=== PATIENT | male | born 1975 | race Caucasian/White ===

== ENCOUNTER → 2022-06-13 08:29 | Outpatient (CLI) | payer OTHER, SELFPAY ==
[2022-06-13 09:34] LABS: Influenza A - CEPHEID Flu A NEGATIVE (NEGATIVE); Influenza B - CEPHEID Flu B NEGATIVE (NEGATIVE); Respiratory Syncytial Virus Negative (Negative)
[2022-06-13 09:59] LABS: COVID-19 CEPHEID 4-PLEX PCR Negative (Negative)
== END ==
PROVIDERS: Visit Provider Physician Assistant Medical
DX: J02.9 Acute pharyngitis, unspecified (principal); R05.9 Cough, unspecified
CPT/HCPCS: 0241U; 87070; 87077; 87147

== ENCOUNTER 2025-01-22 07:51 | Emergency (ER) | payer OTHER, SELFPAY ==
[2025-01-22 08:16] VITALS: BP 146/88; PULSE 69; RESP 12; TEMP 36.6; O2SAT 99; BMI 34.9
--- NOTE | 2025-01-22 08:24 | DI.US.S_ITS ---
PROCEDURE: US SCROTUM INDICATIONS: RIGHT TESTICULAR PAIN TECHNIQUE: Real-time scanning was performed of the scrotum and testicles, with image documentation. Color and pulse Doppler interrogation was performed of both testicles. COMPARISON: [facility], CT, CT KIDNEY URETER BLADDER (KUB), 01/22/2025, 8:48. FINDINGS: Right: Testicle is normal in size at 4.6 x 3.3 x 2.5 cm, and homogenous in echotexture. Epididymis demonstrates multiple cysts. Mild hydrocele without varicoceles. Overlying scrotal skin is normal in thickness. Left: Testicle is normal in size at 4.6 x 3.7 x 2.7 cm, and homogeneous in echotexture. Epididymis is normal in overall size and morphology. Mild hydrocele without varicoceles. Overlying scrotal skin is normal in thickness. Doppler: Color and pulse Doppler demonstrate mild increased vascularity within the testicles biltaterally, as well as right epididymis. IMPRESSION: Increased vascularity within the right testicle and epididymis suggestive of epididymal orchitis. Questionable slightly increased vascularity within the left testicle possibly related to inflammation such as orchitis. Dictated by: Ramya Cohen M.D. on 01/22/2025 at 9:45 Approved by: Ramya Cohen M.D. on 01/22/2025 at 9:48
--- NOTE | 2025-01-22 08:42 | ED.MALEGU ---
HPI - Male Genitourinary General Chief complaint: Urogenital-Male Stated complaint: Pain in right testicle , right shoulder pain Time Seen by Provider: 01/22/25 08:31 Source: patient Mode of arrival: Ambulatory History of Present Illness HPI Narrative: Patient here for off and on right testicular pain right lower quadrant pain. No nausea or sweating. No hematuria no urinary urgency frequency. No penile discharge. Patient is monogamous with . No prior history of kidney stone or STD. Currently has no pain. However earlier this morning had pain. It is waxing and waning for the past 6 days. There has been days with no pain. Right shoulder pain is not new. This is chronic. Related Data Previous Rx's ?Medication ?Instructions ?Recorded amoxicillin 875 mg-potassium 1 tab PO BID #20 tabs 06/13/22 clavulanate 125 mg tablet doxycycline monohydrate 100 mg 100 mg PO BID #20 caps 01/22/25 capsule Allergies Allergy/AdvReac Type Severity Reaction Status Date / Time No Known Drug Allergies Allergy Verified 06/13/22 09:20 Review of Systems Review of Systems Narrative: GENERAL: Negative chills, fatigue, malaise, fever, sweats. HEENT: Negative sinus pain, ear pain, sore throat RESPIRATORY: Negative dyspnea, cough CARDIOVASCULAR: Negative chest pain, palpitations GASTROINTESTINAL: Negative vomiting, nausea, abdominal pain : Negative dysuria, frequency, hematuria, positive testicular pain MUSCULOSKELETAL: Negative muscle or bony pain SKIN: Negative rash, skin lesions NEUROLOGIC: Negative weakness, numbness ROS Unobtainable: All systems reviewed & are unremarkable except as noted in HPI and below Patient History Social History Smoking Status: Never smoker Smoking Status: Never smoker Exam Narrative Exam Narrative: GENERAL: in no distress, not toxic not dyspneic HEAD: Normocephalic. EYES: Pupils equal round ENT: Mucous membranes moist. NECK: Trachea midline. CARDIOVASCULAR: Regular rate and rhythm RESPIRATORY: Clear to auscultation. Breath sounds equal bilaterally. No wheezes, rales, or rhonchi. GASTROINTESTINAL: Abdomen soft, non-tender : Patient is circumcised. Scrotal sac nontender no induration. No lesions or vesicles. No testicular tenderness no epididymal tenderness. EXTREMITIES: No gross deformities. BACK: No flank tenderness. NEURO: AOx4. Clear speech SKIN: Warm and dry PSYCH: Not anxious, is cooperative Initial Vital Signs Initial Vital Signs: Vital Signs Temperature 97.8 F 01/22/25 08:16 Pulse Rate 69 01/22/25 08:16 Respiratory Rate 12 01/22/25 08:16 Blood Pressure 146/88 H 01/22/25 08:16 Pulse Oximetry 99 01/22/25 08:16 Oxygen Delivery Method Room Air 01/22/25 08:16 Course Orders Ordered: ED Orders 01/22/25 08:24 US scrotum Stat 01/22/25 08:41 CT kidney ureter bladder (KUB) Stat 01/22/25 08:54 Complete Blood Count AUTO DIFF Stat Comprehensive Metabolic Panel Stat 01/22/25 10:40 Urine Culture Stat Urine Microscopic Stat Discontinued Medications Ceftriaxone Sodium (Ceftriaxone 1,000 Mg Vial) 500 mg IM NOW ONE Stop: 01/22/25 11:15 Doxycycline Hyclate (Doxycycline Hyclate 100 Mg Tablet) 100 mg PO NOW ONE Stop: 01/22/25 11:15 Sodium Chloride (Normal Saline 0.9%) 1,000 mls @ 1,000 mls/hr IV BOLUS ONE Stop: 01/22/25 09:40 Last Infusion: 01/22/25 10:10 Dose: Infused Documented By: Admin: 01/22/25 09:06 Dose: 1,000 mls/hr Documented By: YUNIEL Lidocaine HCl (Lidocaine 1% (Pf) 5 Ml) 2.1 ml INJ NOW ONE Stop: 01/22/25 11:15 Vital Signs Vital signs: Vital Signs - 8 hr 01/22/25 08:16 01/22/25 10:04 01/22/25 10:05 Temperature 97.8 F Pulse Rate 69 62 Respiratory Rate 12 Blood Pressure 146/88 H 118/81 Pulse Oximetry 99 98 Oxygen Delivery Method Room Air 01/22/25 10:05 01/22/25 11:36 Temperature 98.0 F Pulse Rate 62 61 Respiratory Rate 14 Blood Pressure 139/87 Pulse Oximetry 97 98 Oxygen Delivery Method Room Air MDM - Male Genitourinary Lab Data 01/22/25 08:54 01/22/25 08:54 Labs: Lab Results 01/22/25 01/22/25 Range/Units 08:54 10:40 WBC 5.8 (4.5-11.0) X10^3/uL RBC 4.56 (4.5-5.9) X10^6/uL Hgb 10.7 L (13.5-17.5) g/dL Hct 33.3 L (41-53) % MCV 73.0 L (80-100) fL MCH 23.4 L (26-34) PG MCHC 32.0 (30-36) % RDW 15.4 H (11.6-14.8) % Plt Count 404 H (150-400) X10^3/uL Neut % (Auto) 57.3 (50-75) % Lymph % (Auto) 24.5 L (25-40) % [place] % (Auto) 12.4 (3-14) % Eos % (Auto) 5.2 H (2-4) % Baso % (Auto) 0.6 (0-2) % Neut # (Auto) 3300 (5145-1620) /uL Lymph # (Auto) 1400 (3567-1345) /uL [place] # (Auto) 700 (0-900) /uL Eos # (Auto) 300 (0-450) /uL Baso # (Auto) 0 (0-100) /uL Sodium 140 (137-145) mmol/L Potassium 4.3 (3.4-5.1) mmol/L Chloride 107 (98-107) mmol/L Carbon Dioxide 24 (22-32) mmol/L BUN 13 (9-20) mg/dL Creatinine 0.89 (0.66-1.25) mg/dL Estimated GFR > 60 (>60) mL/min BUN/Creatinine Ratio 14.6 (6-22) Glucose 97 (70-99) mg/dL Calcium 9.0 (8.4-10.2) mg/dL Total Bilirubin 0.5 (0.2-1.3) mg/dL AST 35 (17-59) IU/L ALT 42 (<50) IU/L Alkaline Phosphatase 72 (38-126) U/L Total Protein 7.2 (6.3-8.2) g/dL Albumin 4.4 (3.5-5.0) g/dL Globulin 2.8 (1.7-4.1) g/dL Albumin/Globulin Ratio 1.6 (1.0-2.8) Urine RBC 5-10/hpf H (0-5/HPF) Urine WBC None seen (0-5/HPF) Ur Squamous Epith Cells None seen (0-5/HPF) Urine Bacteria None seen (None) Urine Mucus 1+ H (Negative) Ur Culture Indicated? Cult not indicated Vol Urine Centrifuged 10ml (spun) Urine Dip Bedside Urine Glucose Negative Bedside Urine Bilirubin - Negative Bedside Urine Ketone - Negative Urine Specific [place] 1.015 Bedside Urine Occult Blood +/- Bedside Urine pH 6.0 Bedside Urine Protein - Negative Bedside Urine Urobilinogen - Negative Bedside Urine Nitrite - Negative Bedside Urine Leukocytes - Negative Esterase Imaging Data CT scan - abdomen/pelvis: Radiologist's Impression: [address] [address] [address] Scan Report Signed Patient: Placido Walter MR#: [id number] : 1975 Acct:[id number] Age/Sex: 49 / M Date of Service: 01/22/25 Loc: ED Accession Number: [id number] Procedure: CT kidney ureter bladder (KUB) Ordering Provider: Valerio Fitch MD PROCEDURE: CT KIDNEY URETER BLADDER (KUB) INDICATIONS: right side pain TECHNIQUE: Axial sections were acquired from the lung bases to the pubic symphysis. Coronal and sagittal reformats were performed. For radiation dose reduction, the following was used: automated exposure control, adjustment of mA and/or kV according to patient size. COMPARISON: MR, MR ABD PELVIS W&WO CON, 03/23/2017, 7:13. CT, CT KUB, 03/03/2017, 14:45. FINDINGS: Image quality: Diagnostic. Lower Chest: No significant findings. URINARY: Right Kidney: No stones or hydronephrosis. Right Ureter: No hydroureter. Left Kidney: No stones or hydronephrosis. Left Ureter: No hydroureter. Bladder: Normal wall thickness. No stones. ABDOMEN: Liver: 3.8 x 2.8 cm low-attenuation focus within the right lateral hepatic lobe series 2, image 43. Hounsfield units measure approximately 38. This is been unchanged since 2017. Gallbladder: No radiopaque gallstones or wall thickening. Biliary ducts: No biliary dilation. Pancreas: No ductal dilation. Spleen: Size is within normal limits. Adrenal Glands: No adrenal nodules. Stomach and Bowel: Normal colonic caliber, without significant wall thickening. Peritoneum: No abnormal intraperitoneal fluid. No free air. Ventral Wall: No hernia. Abdominal Nodes: No enlarged retroperitoneal or mesenteric lymph nodes. Vessels: Aorta and inferior vena cava are normal in size. PELVIS: Pelvic Organs: Unremarkable. Pelvic Nodes: Unremarkable. Miscellaneous: No inguinal hernias are seen. Bones: Unremarkable. IMPRESSION: No obstructing stones or hydronephrosis. No visualized cause of abdominal pain. Dictated by: Ramya Cohen M.D. on 01/22/2025 at 9:17 Approved by: Ramya Cohen M.D. on 01/22/2025 at 9:20 Scrotal ultrasound: Radiologist's Impression: [place] [address] Ultrasound Report Signed Patient: Placido Walter MR#: [id number] : 1975 Acct:[id number] Age/Sex: 49 / M Date of Service: 01/22/25 Loc: ED Accession Number: [id number] Procedure: US scrotum Ordering Provider: Valerio Fitch MD PROCEDURE: US SCROTUM INDICATIONS: RIGHT TESTICULAR PAIN TECHNIQUE: Real-time scanning was performed of the scrotum and testicles, with image documentation. Color and pulse Doppler interrogation was performed of both testicles. COMPARISON: [facility], CT, CT KIDNEY URETER BLADDER (KUB), 01/22/2025, 8:48. FINDINGS: Right: Testicle is normal in size at 4.6 x 3.3 x 2.5 cm, and homogenous in echotexture. Epididymis demonstrates multiple cysts. Mild hydrocele without varicoceles. Overlying scrotal skin is normal in thickness. Left: Testicle is normal in size at 4.6 x 3.7 x 2.7 cm, and homogeneous in echotexture. Epididymis is normal in overall size and morphology. Mild hydrocele without varicoceles. Overlying scrotal skin is normal in thickness. Doppler: Color and pulse Doppler demonstrate mild increased vascularity within the testicles biltaterally, as well as right epididymis. IMPRESSION: Increased vascularity within the right testicle and epididymis suggestive of epididymal orchitis. Questionable slightly increased vascularity within the left testicle possibly related to inflammation such as orchitis. Dictated by: Ramya Cohen M.D. on 01/22/2025 at 9:45 Approved by: Ramya Cohen M.D. on 01/22/2025 at 9:48 MDM Narrative Medical decision making narrative: Patient here for off and on right testicular pain right lower quadrant pain. No nausea or sweating. No hematuria no urinary urgency frequency. No penile discharge. Patient is monogamous with . No prior history of kidney stone or STD. Currently has no pain. However earlier this morning had pain. It is waxing and waning for the past 6 days. There has been days with no pain. Right shoulder pain is not new. This is chronic. After history and exam, CBC CMP urinalysis ultrasound testicle CT KUB normal saline. Pain is controlled at this time. Patient does not want anything for pain. There is no pain. [facility] Medical records reviewed: No recent visit for this complaint Differential considered: Includes but not limited to testicular torsion epididymitis hydrocele varicocele kidney stone ureteral stone UTI Lab Test results independently reviewed as above. Pertinent findings: WBC 5.8 hemoglobin 10.7 sodium 140 potassium 4.3 urinalysis negative nitrite negative leukocytes Imaging studies independently reviewed: Ultrasound scrotal, epididymitis noted. CT KUB no acute finding Consultations: None indicated at this time Re-evaluations: 11:18 a.m.. Updated patient results. Agrees for treatment for epididymitis. Return precautions reviewed no pain at this time. He desires discharge home. Discussion: Appropriate for discharge home. Exam is reassuring. Antibiotics have been started. Return precautions reviewed. He desires discharge home. Diagnosis: Epididymitis Discharge Plan Departure Patient Disposition: Home Clinical Impression: Epididymitis Instructions: DI for Epididymitis Activity Restrictions/Additional Instructions: You are being treated for epididymitis. Antibiotics have been started. Please see family doctor next week for re-evaluation. Prescriptions have been sent to your pharmacy to continue. Return if worse if any questions or concerns. Prescriptions: New doxycycline monohydrate 100 mg capsule 100 mg PO BID Qty: 20 0RF No Action amoxicillin-pot clavulanate 875-125 mg tablet 1 tab PO BID Qty: 20 0RF Stand Alone Forms: Patient Portal/API
[2025-01-22] MEDS: SODIUM CHLORIDE 0.9% 1,000 ML 1000 ML IV (09:06)
[2025-01-22 09:08] LABS: Add Manual Diff / Slide Review NO; Hematocrit 33.3 % (41-53); Hemoglobin 10.7 g/dL (13.5-17.5); Lymphocytes Absolute Auto 1400 /uL (1100-4500); Mean Corpuscular HGB Conc 32.0 % (30-36); Mean Corpuscular Hemoglobin 23.4 PG (26-34); Mean Corpuscular Volume 73.0 fL (80-100); Platelet Count 404 X10^3/uL (150-400)
[2025-01-22 09:18] LABS: Alanine Aminotransferase 42 IU/L (<50); Albumin 4.4 g/dL (3.5-5.0); Albumin Globulin Ratio 1.6 (1.0-2.8); Alkaline Phosphatase 72 U/L (38-126); Blood Urea Nitrogen 13 mg/dL (9-20); Calcium 9.0 mg/dL (8.4-10.2); Carbon Dioxide 24 mmol/L (22-32); Chloride 107 mmol/L (98-107); Estimated Glomerular Filt Rate > 60 mL/min (>60); Globulin 2.8 g/dL (1.7-4.1); Glucose 97 mg/dL (70-99); HEMOLYSIS < 15 (0-50); Potassium 4.3 mmol/L (3.4-5.1); Sodium 140 mmol/L (137-145); Total Protein 7.2 g/dL (6.3-8.2)
[2025-01-22 10:04] VITALS: PULSE 62; O2SAT 98
[2025-01-22 10:05] VITALS: BP 118/81; PULSE 62; O2SAT 97
[2025-01-22 11:34] LABS: Culture Indicated Urine Cult Not Indicated
[2025-01-22] MEDS: DOXYCYCLINE HYCLATE 100 MG TABLET PO (11:35)
[2025-01-22] MEDS: LIDOCAINE 1% (PF) 5 ML 2.1 ML INJ (11:35)
[2025-01-22 11:36] VITALS: BP 139/87; PULSE 61; RESP 14; TEMP 36.7; O2SAT 98
== END 2025-01-22 11:43 | disposition home or self-care (01) ==
PROVIDERS: Emergency Provider Emergency Medicine
DX: N45.1 Epididymitis (principal); R10.31 Right lower quadrant pain
CPT/HCPCS: 74176; 76870; 80053; 81003; 81015; 85025; 87086; 93975; 96360; 96372; 99284; J0696